=== PATIENT | female | born 1955 | race Hispanic/Latino ===

== ENCOUNTER → 2024-12-05 | Outpatient (CLI) | payer OTHER ==
--- NOTE | 2024-12-05 17:27 | HMCSR ---
APPROVED REPORT EXAM: Two-dimensional and M-mode echocardiogram with Doppler and color Doppler. INDICATION ICD: I48.2 Paroxysmal AF 2D Dimensions RVDd4.2 cmLVEF(%)54.4 (>50%)LVED Vol(simp.)80.0 mL IVSd0.8 (0.7-1.1cm)FS(%)28 %LVES Vol(simp.)43.0 mL LVDd5.1 (3.8-5.6cm)LA (2D)4.6 (1.6-4.0cm)LVEF(%, simp.)47 % PWd1.2 (0.7-1.1cm)Ao Root(2D)3.3 (2.0-3.7cm)LA ESV INDEX (BP)37.61 mL/m2 IVSs1.0 cmLVOT diam2.3 (1.8-2.4cm) LVDs3.6 (2.5-4.0cm)IVC diam1.6 cm PWs1.5 cm M-Mode Dimensions EPSS1.0 cm LA (MM)4.8 (1.6-4.0cm) Ao Root(MM)2.7 (2.0-3.7cm) Aortic Valve AoV Vmax1.3 m/Percy Peak GR6.3 mmHgLVOT Vmax0.8 m/s AoV VTI0.2 mAo Mean GR3.0 mmHgLVOT VTI0.14 m PERCY (VMAX)2.79 cm2AVA (VTI) 2.8 cm2 Mitral Valve MV E Vmax92.6 cm/sDECEL Kuwq424 ms MV A Vmax32.8 cm/sP 1/2 T61 ms E/A ratio2.8MVA (PHT)3.6 cm2 TDI E/E' Pkswoa46.1E/E' [id number] Medial E' Peak V4.86 cm/sLateral E' Peak V3.49 cm/s Pulmonary Valve PV Vmax0.9 m/sPV Mean GR1.8 mmHg PV Peak GR3.3 mmHg Tricuspid Valve RAP (EST) 8 mmHgRVSP8.0 mmHg Left Ventricle The left ventricle is normal size. Mild global hypokinesis There is normal left ventricular wall thic kness. LVEF is 45-50%. The LV diastolic function was unable to be assessed due to atrial arrhythmia. Right Ventricle The right ventricle is mildly dilated. The right ventricular systolic function is boderline reduced. Atria The left atrium is mildly dilated. The right atrium is moderately dilated. Aortic Valve The aortic valve is normal in structure. No aortic regurgitation is present. There is no aortic valvu lar stenosis. Mitral Valve The mitral valve is normal in structure. There is trace of mitral valve regurgitation noted. There is no mitral valve stenosis. Tricuspid Valve The tricuspid valve is normal in structure. There is trace of tricuspid valve regurgitation noted. Pulmonic Valve The pulmonary valve is normal in structure. There is no pulmonic valvular regurgitation. Great Vessels The aortic root is normal in size. The IVC is normal in size and collapses <50% with inspiration. Pericardium There is no pericardial effusion. Other Information Quality : Adequate Conclusion Mild global hypokinesis LVEF is 45-50%. The right ventricle is mildly dilated. There is no pericardial effusion.
== END | disposition home or self-care (01) ==
LOC: RAH 13:51
PROVIDERS: ATTEND Internal Medicine
DX: I51.7 Cardiomegaly (principal); I48.0 Paroxysmal atrial fibrillation; I48.20 Chronic atrial fibrillation, unspecified
CPT/HCPCS: 93306

== ENCOUNTER → 2025-06-08 | Outpatient (CLI) | payer OTHER, MEDICAID ==
--- NOTE | 2025-06-08 13:20 | NUR ---
MBSS COMPLETED (OUTPATIENT). No aspiration; Deep non-transient penetration during the swallow with thin liquids via tsp and mildly thick liquids via regular/large straw sips with no cough response; non-transient penetrations with regular/large sips of nectar thick liquids and pudding textures with; transient penetrations with small straw sips of mildly thicken liquids and mixed textures. RECOMMEND: minced and moist solids, mildly thick liquids (small sips), and pills crushed with pureed as tolerated. COMPENSATORY STRATEGIES: 1. sit upright during oral intake 2. small bites/sips 3. slow oral intake 4. 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 Pt noted with dysarthria, missing teeth/spaces, and tongue deviation to right side. DIAGNOSTIC FINDINGS: Pt presented with mild oral and mild to moderate pharyngeal dysphagia characterized by decreased oral motor strength; decreased tongue base retraction; delayed pharyngeal response trigger; decreased senstaion; and decreased hyo-laryngeal elevation/excursion evidenced by prolonged mastication; premature spillage to valleculae with spillover to pyriform sinuses; residue on base of tongue and valleculae cleared with extra dry swallows; resulting in no aspirations; deep non-transient penetration during the swallow with thin liquids via tsp and mildly thick liquids via regular/large straw sips with no cough response; non-transient penetrations with regular/large sips of nectar thick liquids and pudding textures; transient penetrations with small straw sips of mildly thicken liquids and mixed textures; penetrations eliminated with small sips. DISTRICT AGENT reviewed results and recommendations with patient and present at time of visit. DISTRICT AGENT educated patient on risks and consequences of aspiration. Speech therapy recommended at this time to address oropharyngeal dysphagia. A can of thickener provided to patient/family and discussed how to reach moderately thick liquids. All questions answered. Addendum: 06/09/[address] [place] YE[facility]G Amended: Links added.
--- NOTE | 2025-06-15 09:03 | HMCIMG ---
MODIFIED BARIUM SWALLOW W CINE REASON: Dysphagia, unspecified /Feeding difficulties, unspecified FINDINGS: Fluoroscopic assistance was provided to the speech pathologist while performing examination. For findings and dietary recommendations, refer to speech pathologist's report. FLUORO TIME: 5.4 minutes IMPRESSION: Modified barium swallow as described.
== END | disposition home or self-care (01) ==
LOC: RAH 11:58
PROVIDERS: ATTEND Internal Medicine Gastroenterology
DX: R13.10 Dysphagia, unspecified (principal); R63.30 Feeding difficulties, unspecified
CPT/HCPCS: 74230; 92611